=== PATIENT | male | born 1985 | race Caucasian/White ===

== ENCOUNTER 2016-11-02 05:35 | Emergency (ER) | payer SELFPAY ==
[~2016-11-02] VITALS: Ht 182.9 cm; Wt 86.5 kg
[2016-11-02 06:04] LABS: HEMATOCRIT 42.8 % (38.0-50.0); MCHC 34.6 G/DL (30.0-36.0); MCV 89.7 FL (86-99); MEAN PLAT.VOLUME 10.8 uM^3 (9.0-12.4); PLATELET COUNT 200 K/uL (156-360); RBC DIS.WIDTH-CV 12.1 % (11.8-14.6); RBC DIS.WIDTH-SD 39.6 % (39-53); RED BLOOD COUNT 4.77 M/uL (4.00-5.50); WHITE BLOOD COUNT 11.1 K/uL (4.1-10.2)
[2016-11-02 06:14] LABS: CHLORIDE 106 mEq/L (99-109); POTASSIUM 3.7 mEq/L (3.7-5.4); SODIUM 138 mEq/L (136-147)
[2016-11-02 06:16] LABS: GLUCOSE 114 mg/dL (70-99)
[2016-11-02 06:17] LABS: ADD MIUA? YES; BILIRUBIN NEGATIVE; BLOOD SMALL; COLOR YELLOW ((YELLOW)); GLUCOSE (STRIP) NEGATIVE; KETONES NEGATIVE; LEUKOCYTES NEGATIVE; NITRITE NEGATIVE; PROTEIN (STRIP) NEGATIVE; SPECIFIC GRAVITY 1.023 (1.000-1.030); UROBILINOGEN 0.2 MG/DL (0.2-1.0)
[2016-11-02 06:17] LABS: ANION GAP 11 MEQ/L (2-14)
[2016-11-02 06:18] LABS: TOTAL BILIRUBIN 0.4 mg/dL (0.0-1.0)
[2016-11-02 06:19] LABS: ALKALINE PHOSPHATASE 86 IU/L (3-129)
[2016-11-02 06:20] LABS: GFR ESTIMATE (CALCULATED) > 59 mL/min/
[2016-11-02 06:21] LABS: UREA NITROGEN (BUN) 14 mg/dL (9-23)
[2016-11-02 06:21] LABS: BACTERIA RARE /HPF; EPITHELIAL CELLS NONE SEEN /HPF; MUCUS NONE SEEN /LPF; UCUL ADDED? NO; WHITE BLOOD CELLS 0-5 /HPF (0-5)
[2016-11-02] MEDS ORDERED: ZOFRAN4 MG PO (07:53)
[2016-11-02] MEDS ORDERED: TYLENOL WITH C1 EACH PO (07:53)
[2016-11-02 08:14] VITALS: BP 118/74
== END 2016-11-02 08:23 | disposition home or self-care (01) ==
LOC: EME 05:35
DX: R10.31 Right lower quadrant pain (principal); R10.32 Left lower quadrant pain; R19.7 Diarrhea, unspecified
CPT/HCPCS: 74177; 80053; 81003; 85027; 99281; 99284; J1885; J7030